=== PATIENT | female | born 1985 | race Caucasian/White ===

== ENCOUNTER 2022-04-16 10:14 | Emergency (ER) | payer OTHER ==
[~2022-04-16] VITALS: Ht 162.6 cm; Wt 74.8 kg
[2022-04-16] MEDS ORDERED: AZITHROMYCIN250 MG PO (10:58)
[2022-04-16] MEDS ORDERED: IBUPROFEN200 MG PO (10:58)
[2022-04-16] MEDS ORDERED: THERAFLU FLU &1 EAC1 PO (10:58)
== END 2022-04-16 11:20 | disposition home or self-care (01) ==
LOC: FSED 10:33
DX: R05.9 Cough, unspecified (principal); J06.9 Acute upper respiratory infection, unspecified; R09.89 Other specified symptoms and signs involving the circulatory and respiratory systems
CPT/HCPCS: 83518; 87400; 99282